=== PATIENT | female | born 1970 | race Caucasian/White ===

== ENCOUNTER → 2020-06-14 | Outpatient (CLI) | payer OTHER ==
[~2020-06-14] MED LIST: NO HOME MEDICATIONS
== END ==
LOC: MC.RAD 14:15
DX: Z12.31 Encounter for screening mammogram for malignant neoplasm of breast (principal)

== ENCOUNTER → 2023-07-17 | Outpatient (CLI) | payer OTHER | LOC: MC.RAD 08:16 | DX: Z12.31 Encounter for screening mammogram for malignant neoplasm of breast (principal) ==